=== PATIENT | male | born 1945 | race Caucasian/White ===

== ENCOUNTER → 2016-06-21 | Outpatient (CLI) | payer MEDICARE, BC | END | disposition home or self-care (01) | LOC: GMAL 10:37 | PROVIDERS: ATTEND Family Medicine | DX: Z12.5 Encounter for screening for malignant neoplasm of prostate (principal) ==

== ENCOUNTER → 2016-08-13 | Outpatient (CLI) | payer MEDICARE, BC ==
--- NOTE | 2016-08-14 07:32 | CT ---
EXAM DESCRIPTION: CTA Neck CLINICAL HISTORY: 70 years, Male, Occlusion and stenosis of bilateral carotid arteries COMPARISON: None TECHNIQUE: CTA of the neck was performed with IV contrast including 3D reformatted images. This exam was performed according to our departmental dose-optimization program, which includes automated exposure control, adjustment of the mA and/or kV according to patient size and/or use of iterative reconstruction technique. FINDINGS: All diameter measurements and percent stenosis values in this report are based on NASCET criteria. There is a small amount of calcified plaque in the carotid bifurcations bilaterally without significant left or right-sided carotid artery stenosis. There is some noncalcified plaque resulting in moderate stenosis of the distal petrous/precavernous segment of the right ICA. The common and internal carotid arteries are otherwise unremarkable. The vertebral arteries are codominant. Calcified and noncalcified plaque in the distal right vertebral artery results in short segment high-grade stenosis or occlusion. The basilar artery is unremarkable. The innominate and visualized portions of the subclavian arteries are unremarkable. No thyroid nodule. No cervical adenopathy. Mucoperiosteal thickening is noted in the maxillary sinuses bilaterally. There are degenerative changes in the cervical spinal multiple levels including facet joint degeneration resulting in neuroforaminal stenosis, worse on the left side at C5-6 and worse on the right side at C3-4. IMPRESSION: Small amount of calcified plaque in the carotid bifurcations bilaterally without significant left or right-sided carotid artery stenosis. Calcified and noncalcified plaque in the distal right vertebral artery resulting in short segment high-grade stenosis or occlusion. Noncalcified plaque in the distal petrous/precavernous segment of the right ICA resulting in approximately 50% stenosis. Chronic bilateral maxillary sinusitis. Degenerative changes in cervical spine including neuroforaminal stenosis. Electronically signed by: Yaya Peterson MD 08/14/2016 7:31 AM CDT
== END | disposition home or self-care (01) ==
LOC: CT 09:39
PROVIDERS: ATTEND Family Medicine
DX: I65.23 Occlusion and stenosis of bilateral carotid arteries (principal)

== ENCOUNTER → 2016-12-25 | Outpatient (CLI) | payer MEDICARE, BC | END | disposition home or self-care (01) | LOC: GMAL 10:36 | PROVIDERS: ATTEND Family Medicine | DX: D51.3 Other dietary vitamin B12 deficiency anemia (principal); R53.82 Chronic fatigue, unspecified; E55.9 Vitamin D deficiency, unspecified; R53.2 Functional quadriplegia ==

== ENCOUNTER → 2017-04-24 | Outpatient (CLI) | payer MEDICARE, BC ==
--- NOTE | 2017-04-24 19:16 | RAD ---
EXAM: Bilateral Ribs CLINICAL INDICATION: 71-year-old male with chest pain. TECHNIQUE: Single view, AP portable chest was obtained. Five views of the bilateral ribs were obtained in multiple projection. COMPARISON: None. FINDINGS: Chest: Unremarkable cardiac and mediastinal silhouette. Heart size is normal. Lungs are clear without focal opacity, pneumothorax or pleural effusions. Ribs: The visualized bones reveal degenerative change. IMPRESSION: 1. No acute cardiopulmonary abnormalities. 2. No radiographic findings noted to suggest etiology of the patient's symptoms. Electronically signed by: Socorro Chambers MD 04/24/2017 7:15 PM [facility]
== END | disposition home or self-care (01) ==
LOC: RAD 18:30
PROVIDERS: ATTEND Nurse Practitioner Family
DX: R07.9 Chest pain, unspecified (principal)

== ENCOUNTER → 2018-02-26 | Outpatient (CLI) | payer MEDICARE, BC | LOC: GMAL 10:56 | PROVIDERS: ATTEND Family Medicine | DX: D51.3 Other dietary vitamin B12 deficiency anemia (principal); R53.82 Chronic fatigue, unspecified; E55.9 Vitamin D deficiency, unspecified; Z12.5 Encounter for screening for malignant neoplasm of prostate | CPT/HCPCS: 82306; 82607; 84443; G0103 ==

== ENCOUNTER → 2018-12-16 | Outpatient (CLI) | payer MEDICARE, BC ==
--- NOTE | 2018-12-16 15:47 | US ---
EXAM DESCRIPTION: Carotid Duplex: ULTRASOUND. CLINICAL HISTORY: 73 years Male CAROTID BRUIT COMPARISON: CTA neck 08/13/2016. TECHNIQUE: Transcutaneous scanning utilizing zuñiga-scale and Doppler modes to evaluate the bilateral carotid systems and vertebral arteries. Percentage of diameter of stenosis or no stenosis recorded will be based upon NASCET criteria. FINDINGS: Peak systolic/end diastolic (CM-Sec) CCA Right 90/8 Left 89/9. ICA Right proximal 55/12, mid 73/13. Left proximal 42/9, Distal 74/11. Vertebral Right 50/0 Left 56/14. ECA (PS Only) Right 88 left 80. ICA/CCA peak systolic ratio: Right 0.6 Left 0.8 ICA/CCA end diastolic ratio: Right 1.2 Left 1.2 Vertebral arteries: antegrade flow. Comments: Minimal atherosclerotic calcifications bilaterally. No significant spectral broadening bilaterally. No turbulent color flow. IMPRESSION: 1. Doppler evaluation of the bilateral carotid systems and vertebral arteries shows no hemodynamically significant stenoses. 2. Minimal amount of plaque seen in the carotid arteries bilaterally. Bilateral vertebral arteries showed antegrade-cephalad flow. Electronically signed by: Demar Quispe MD 12/16/2018 3:46 PM CDT
== END ==
LOC: US 10:00
PROVIDERS: ATTEND Family Medicine
DX: I65.23 Occlusion and stenosis of bilateral carotid arteries (principal)

== ENCOUNTER → 2019-06-22 | Outpatient (CLI) | payer MEDICARE, BC | LOC: GMAL 10:23 | PROVIDERS: ATTEND Family Medicine | DX: Z12.5 Encounter for screening for malignant neoplasm of prostate (principal); I10 Essential (primary) hypertension; E11.9 Type 2 diabetes mellitus without complications; E78.49 Other hyperlipidemia ==

== ENCOUNTER 2020-07-04 06:18 | Emergency (ER) | payer MEDICARE, BC ==
[2020-07-04] MEDS ORDERED: ALUMINUM & MAGNESIUM HYDROXIDE 30 ML UD PO ONE (06:40)
[2020-07-04] MEDS ORDERED: ASPIRIN TABLET 325 MG TAB PO ONE (06:40)
--- NOTE | 2020-07-04 06:42 | ED.PDOC ---
History of Present Illness - General Source: patient Exam Limitations: no limitations - History of Present Illness Initial Comments: The patient is a 74-year-old male presented emergency room secondary to report of chest pain at around 8 out of 10 at around 530 this morning. By the time he got in his car to come up here it was subsiding and by the time I see him it is down to a 1 out of 10. No real shortness of breath. No palpitations. No vomiting but questionable nausea. The patient had been woken up earlier in the night about 2 hours earlier with a blood sugar in the low 60s for which he ate and drank something. He has had low blood sugar nightly for the last 3 nights. No syncope or near syncope. No diarrhea. No fever. No shortness of breath. Pain is over the lower sternum. Pain is not reproducible. Pain is not worse with palpation or movement at the time. He did report that he was tachycardic in the 120s on his pulse oximeter but no hypoxia. Timing/Duration: 1 hour Severity: moderate Improving Factors: nothing Worsening Factors: nothing Associated Symptoms: chest pain <Verna Pickens - Last Filed: 07/04/20 06:40> <Marcel Payton - Last Filed: 07/04/20 11:31> - General Chief Complaint: Chest Pain/RI Stated Complaint: chest pain onset 0530 Time Seen by Provider: 07/04/20 06:27 - History of Present Illness Allergies/Adverse Reactions: Allergies NO KNOWN ALLERGY Allergy (Verified 07/04/20 06:31) Home Medications: Ambulatory Orders Amlodipine Besylate [Norvasc] 10 mg PO QAM 12/28/13 Aspirin [Baby Aspirin] 81 mg PO BEDTIME 12/28/13 Calcium 600 mg PO BEDTIME 12/28/13 Insulin Glargine 100U/ml [Lantus] 35 unit SUBCU DAILY 12/28/13 Insulin Lispro [Humalog] 25 unit SC BIDFD 12/28/13 [place]-3 Fatty Acids [Fish Oil] 1 cap PO BID 12/28/13 Potassium Chloride [K-Tab] 10 meq PO DAILYBK 12/28/13 Ramipril 10 mg PO BID 12/28/13 Simvastatin 40 mg PO BEDTIME 12/28/13 Sitagliptin-Metformin HCl [Janumet 50-1000 mg] 1 tab PO BIDFD 12/28/13 Cetirizine HCl [Zyrtec] 10 mg PO DAILY PRN #30 tab 10/08/14 Polyethylene Glycol 3350 [Miralax] 17 gm PO DAILY #30 pckt 10/08/14 Review of Systems - Review of Systems Constitutional: States: no symptoms reported EENTM: States: no symptoms reported Respiratory: States: no symptoms reported Cardiology: States: chest pain Gastrointestinal/Abdominal: States: nausea Genitourinary: States: no symptoms reported Musculoskeletal: States: no symptoms reported Skin: States: no symptoms reported Neurological: States: anxiety Endocrine: States: no symptoms reported All other Systems: No Change from Baseline <Verna Pickens - Last Filed: 07/04/20 06:40> Past Medical History (General) - Patient Medical History Hx Seizures: No Hx Stroke: No Hx Dementia: No Hx Asthma: No Hx of COPD: No Hx Cardiac Disorders: Yes - Hx RI, stent Hx Congestive Heart Failure: No Hx Pacemaker: No Hx Hypertension: Yes Hx Thyroid Disease: No Hx Diabetes: Yes Hx Gastroesophageal Reflux: No Hx Renal Disease: No Hx Cancer: No Hx of HIV: No Hx Hepatitis C: No Hx MRSA: No Surgical History: cholecystectomy - Vaccination History Hx Tetanus, Diphtheria Vaccination: No Hx Influenza Vaccination: No - Social History Hx Tobacco Use: No Hx Alcohol Use: No Hx Substance Use: No Hx Physical Abuse: No Hx Emotional Abuse: No <Verna Pickens - Last Filed: 07/04/20 06:40> Family Medical History - Family History Mother Family History: No Known Living Status: Cause of : Leukaemia Hx Family Hypertension: Yes Hx Family Cancer: Yes Father Living Status: Cause of : multiple myeolma Hx Family Hypertension: Yes Hx Family Cancer: Yes <Verna Pickens - Last Filed: 07/04/20 06:40> Physical Exam - Physical Exam General Appearance: Alert, Anxious, No apparent distress Eye Exam: bilateral normal Ears, Nose, Throat: hearing grossly normal, normal pharynx Neck: full range of motion, supple Respiratory: lungs clear, normal breath sounds, no respiratory distress, no accessory muscle use Cardiovascular/Chest: normal peripheral pulses, regular rate, rhythm, no edema Peripheral Pulses: radial,right: 2+ Gastrointestinal/Abdominal: non tender, soft Rectal Exam: deferred Extremity: normal range of motion, no pedal edema, no calf tenderness, normal capillary refill Neurologic: wet finisher wool II-XII nml as tested, alert, oriented x 3, other - Patient visibly anxious Skin Exam: normal color Comments: Vital Signs - 24 hr 07/04/20 06:22 Temperature 97.5 F L Pulse Rate [ 112 H monitor] Respiratory 20 Rate Blood Pressure 179/83 [Left Arm] O2 Sat by Pulse 97 Oximetry <CelioChentesrinivasa Travis - Last Filed: 07/04/20 06:40> Progress - Progress Progress: 07/04/20 06:44 The patient is a 74-year-old male presented emergency room secondary to chest pain in the area of the lower sternum starting about an hour prior to arrival. It was preceded by hypoglycemia of a mild nature about 2 hours prior. Source is not entirely certain at this point. Laboratory work is pending. EKG does not show significant changes aside from a more prominent bifid P wave when compared to his previous EKGs. Chest x-ray is pending. The patient was positive for Covid back in May. Tachycardia is resolving. Vitals are otherwise stable appearing at this point. Patient will be followed by the oncoming ER physician. The patient's primary care doctor is Dr. Rodriguez. The patient has had a fairly recent stress test according to him. He has had one stent placed in the past. verna celio [id number] - Results/Orders Results/Orders: EKG shows sinus tachycardia with first-degree AV block at 110 bpm. Old inferior RI. Normal R wave progression. Borderline left axis. Normal QT interval. No obvious ST segment or T wave changes indicative of acute ischemia. Bifid P waves are more pronounced than on the previous EKG. <Verna Pickens - Last Filed: 07/04/20 06:40> - Progress Progress: 07/04/20 09:57 Patient remains pain free, no events on telemetry. Troponin negative x 2. Discussed with Hospitalist, the patient's orchard hand Dr. Ravi will be at [facility]. Will discuss case with Dr. Ravi. 07/04/20 11:29 Patient remains pain free, no events on telemetry, troponin negative x 2. Dr. Ravi evaluated in the ED, okay for discharge. Will follow up with Dr. Rodriguez as an outpatient and Dr. Ravi in one month. The patient is agreeable with this plan of care. Home care instructions and return indications reviewed. <Marcel Payton - Last Filed: 07/04/20 11:31> Departure <Verna Pickens Angy - Last Filed: 07/04/20 06:40> - Departure Time of Disposition: 11:30 Diet: resume usual diet Activity: walking as tolerated <Marcel Payton - Last Filed: 07/04/20 11:31> - Departure Clinical Impression: Chest pain Qualifiers: Chest pain type: unspecified Qualified Code(s): R07.9 - Chest pain, unspecified Disposition: Discharge to Home or Self Care Condition: Excellent Departure Forms: ED Discharge - Pt. Copy, Patient Portal Self Enrollment Instructions: DI for Chest Pain, Chest Pain (DC) Referrals: Dirk Rodriguez III, MD [Primary Care Provider] - 1-2 Weeks KATHY RAVI MD [Consulting Staff] - 1-2 Weeks Home Medications: Ambulatory Orders Amlodipine Besylate [Norvasc] 10 mg PO QAM 12/28/13 Aspirin [Baby Aspirin] 81 mg PO BEDTIME 12/28/13 Calcium 600 mg PO BEDTIME 12/28/13 Insulin Glargine 100U/ml [Lantus] 35 unit SUBCU DAILY 12/28/13 Insulin Lispro [Humalog] 25 unit SC BIDFD 12/28/13 [place]-3 Fatty Acids [Fish Oil] 1 cap PO BID 12/28/13 Potassium Chloride [K-Tab] 10 meq PO DAILYBK 12/28/13 Ramipril 10 mg PO BID 12/28/13 Simvastatin 40 mg PO BEDTIME 12/28/13 Sitagliptin-Metformin HCl [Janumet 50-1000 mg] 1 tab PO BIDFD 12/28/13 Cetirizine HCl [Zyrtec] 10 mg PO DAILY PRN #30 tab 10/08/14 Polyethylene Glycol 3350 [Miralax] 17 gm PO DAILY #30 pckt 10/08/14
--- NOTE | 2020-07-04 06:43 | RAD ---
EXAM: XR Chest, 1 View CLINICAL HISTORY: chest pain TECHNIQUE: Frontal view of the chest. COMPARISON: 04/24/2017 FINDINGS: Lungs: No consolidation. Symmetrical vascular pattern. Pleural space: No pneumothorax. No pleural effusion. Heart: Normal cardiac size and configuration. Mediastinum: No abnormality noted. Bones/joints: No osseous destruction or sclerosis noted. IMPRESSION: This No abnormality noted. Electronically signed by: Cheli Juarez MD 07/04/2020 6:42 AM ECHOMETER ENGINEER
--- NOTE | 2020-07-04 07:48 | CT ---
EXAM DESCRIPTION: CTA Chest RadLex: CT CHEST ANGIOGRAPHY WITH IV CONTRAST CLINICAL HISTORY: chest pain, palpitations, elevated d-dimer; MAIN TECHNIQUE: CT angiogram of the chest using intravenous contrast. MIP reconstructions were performed. All CT scans at this facility use dose modulation, iterative reconstruction, and/or weight based dosing when appropriate to reduce radiation dose to as low as reasonably achievable. COMPARISON: None. FINDINGS: PULMONARY ARTERIES: The pulmonary arteries appear widely patent. There is no evidence for pulmonary embolism. MEDIASTINUM: The heart and great vessels appear unremarkable aside from atherosclerotic vascular calcifications. There is no evidence for pericardial effusion. There is no pathologically enlarged adenopathy. LUNGS: There is minor dependent atelectasis in the lungs bilaterally. There is mild cylindrical bronchiectasis affecting the lower lobes bilaterally The lungs are otherwise clear there is no alveolar consolidation, effusion or pneumothorax. VISUALIZED ABDOMEN: The visualized solid organs of the abdomen appear unremarkable aside from previous cholecystectomy. BONES AND SOFT TISSUES: The soft tissues and osseous structures appear unremarkable. IMPRESSION: 1. No CT evidence of pulmonary embolism. No other acute cardiopulmonary process identified. 2. The patient does have mild cylindrical bronchiectasis affecting the bilateral lower lobes. This could be the sequela of recurrent infection/chronic bronchitis and clinical correlation is advised. 3. Incidental findings include minor dependent atelectasis in the lungs, atherosclerotic vascular calcifications and previous cholecystectomy. Electronically signed by: Nick Min MD 07/04/2020 7:47 AM DIRECTOR OF SPA AND GUEST EXPERIENCE
[2020-07-04 11:07] VITALS: O2SAT 96
[2020-07-04 11:49] VITALS: BP 149/73; TEMP 98.2
== END 2020-07-04 11:45 | disposition home or self-care (01) ==
LOC: ER 06:18
DX: R07.2 Precordial pain (principal); R00.0 Tachycardia, unspecified; I44.0 Atrioventricular block, first degree; R11.0 Nausea; I25.2 Old myocardial infarction; E11.9 Type 2 diabetes mellitus without complications; I10 Essential (primary) hypertension; Z86.16 Personal history of COVID-19; Z20.822 Contact with and (suspected) exposure to COVID-19; Z95.5 Presence of coronary angioplasty implant and graft; Z79.82 Long term (current) use of aspirin; Z79.4 Long term (current) use of insulin; Z79.899 Other long term (current) drug therapy